=== PATIENT | female | born 1975 ===

== ENCOUNTER 2017-07-29 10:54 | Emergency (ER) | payer SELFPAY ==
[2017-07-29 11:24] VITALS: RESP 18
--- NOTE | 2017-07-29 11:53 | ED PDOC ---
Arrival/HPI - General Chief Complaint: Cough, Cold, Congestion Time Seen by Provider: 07/29/17 11:38 Historian: Patient - History of Present Illness Narrative History of Present Illness (Text): 07/29/17 11:51 42yo female with PMHx of Pancreatitis present with 19days history of nonproductive cough. Notes that she took OTC antitussive when the cough started. She denies fever,chills, chest pain, SOB, any other complaint. Past Medical History - Provider Review Nursing Documentation Reviewed: Yes - Travel History If Yes, travel location?: [place] - Psychiatric Hx Substance Use: No - Surgical History Hx Section: Yes Family/Social History - Physician Review Nursing Documentation Reviewed: Yes Family/Social History: Unknown Family HX Smoking Status: Never Smoked Hx Alcohol Use: No Hx Substance Use: No Allergies/Home Meds Allergies/Adverse Reactions: Allergies meperidine [From Demerol] Allergy (Verified 07/29/17 11:24) SHORTNESS OF BREATH Review of Systems - Physician Review All systems were reviewed & negative as marked: Yes - Review of Systems Constitutional: Normal Eyes: Normal ENT: Normal Respiratory: Cough. absent: SOB, Sputum, Wheezing Cardiovascular: Normal Gastrointestinal: Normal Genitourinary Female: Normal Musculoskeletal: Normal Skin: Normal Neurological: Normal Endocrine: Normal Hemo/Lymphatic: Normal Psychiatric: Normal Physical Exam Vital Signs Reviewed: Yes Vital Signs Temp Pulse Resp BP Pulse Ox 07/29/17 12:20 98.7 F 69 18 127/71 98 07/29/17 11:19 99.1 F 73 18 129/79 97 Temperature: Afebrile Blood Pressure: Normal Pulse: Regular Respiratory Rate: Normal Appearance: Positive for: Well-Appearing, Non-Toxic, Comfortable Pain Distress: None Mental Status: Positive for: Alert and Oriented X 3 - Systems Exam Head: Present: Atraumatic, Normocephalic Pupils: Present: PERRL Extroacular Muscles: Present: EOMI Conjunctiva: Present: Normal Mouth: Present: Moist Mucous Membranes Neck: Present: Normal Range of Motion Respiratory/Chest: Present: Clear to Auscultation, Good Air Exchange. No: Respiratory Distress, Accessory Muscle Use, Wheezes, Decreased Breath Sounds, Rales, Retracting, Rhonchi Cardiovascular: Present: Regular Rate and Rhythm, Normal S1, S2. No: Murmurs Abdomen: Present: Normal Bowel Sounds. No: Tenderness, Distention, Peritoneal Signs Back: Present: Normal Inspection Upper Extremity: Present: Normal Inspection. No: Cyanosis, Edema Lower Extremity: Present: Normal Inspection. No: Edema Neurological: Present: GCS=15, CN II-XII Intact, Speech Normal Skin: Present: Warm, Dry, Normal Color. No: Rashes Psychiatric: Present: Alert, Oriented x 3, Normal Insight, Normal Concentration Medical Decision Making ED Course and Treatment: 07/29/17 12:57 Chest xray - [facility] PT was afebrile and hemodynamically stable. She will be treated with antitussive. They is no indication of abx currently. Referred to the clinic. TRT Ed for any new or worsening symptoms. - RAD Interpretation Radiology Orders: 07/29/17 11:38 CHEST TWO VIEWS (PA/LAT) [RAD] Stat Disposition/Present on Arrival - Present on Arrival Any Indicators Present on Arrival: No History of DVT/PE: No History of Uncontrolled Diabetes: No Urinary Catheter: No History of Decub. Ulcer: No History Surgical Site Infection Following: None - Disposition Have Diagnosis and Disposition been Completed?: Yes Diagnosis: Cough Disposition: HOME/ ROUTINE Disposition Time: 13:00 Patient Plan: Discharge Condition: STABLE Discharge Instructions (ExitCare): Acute Cough (ED) Additional Instructions: Follow up with your Doctor/clinic Return to ED for any new symptoms Prescriptions: Benzonatate [Tessalon Perle] 100 mg PO TID #20 capsule Referrals: PCP,NO [Primary Care Provider] - Follow up with primary [facility] [place]] - Follow up with primary Forms: [employer] (Nepalese)
[2017-07-29 12:40] VITALS: BP 127/71; PULSE 69; TEMP 98.7; O2SAT 98
--- NOTE | 2017-07-29 12:53 | RAD ---
HISTORY: cough COMPARISON: No prior. TECHNIQUE: Chest PA and lateral FINDINGS: LUNGS: No active pulmonary disease. PLEURA: No significant pleural effusion identified. No pneumothorax apparent. CARDIOVASCULAR: Normal. OSSEOUS STRUCTURES: No significant abnormalities. VISUALIZED UPPER ABDOMEN: Normal. OTHER FINDINGS: None. IMPRESSION: No active disease.
[2017-07-29] MEDS ORDERED: guaiFENesin 200 mg/10 ml Syrup UD PO STA (12:57)
== END 2017-07-29 13:44 | disposition home or self-care (01) ==
LOC: ED 10:54
DX: R05 Cough (principal)